=== PATIENT | female | born 1975 | race Two or more races ===

== ENCOUNTER 2019-08-20 10:55 | Emergency (ER) | payer MEDICAID ==
[~2019-08-20] VITALS: Ht 165.1 cm; Wt 124.7 kg
[2019-08-20 11:41] VITALS: BP 155/84
[2019-08-20] MEDS ORDERED: KETOROLAC TROMETH 60MG/2ML VIAL IM ONE (13:15)
== END 2019-08-20 13:43 | disposition home or self-care (01) ==
LOC: ER 10:55
DX: S86.911A Strain of unspecified muscle(s) and tendon(s) at lower leg level, right leg, initial encounter (principal); Z88.1 Allergy status to other antibiotic agents; Z88.6 Allergy status to analgesic agent; X50.0XXA Overexertion from strenuous movement or load, initial encounter; Y93.89 Activity, other specified; Y92.89 Other specified places as the place of occurrence of the external cause; Y99.8 Other external cause status
CPT/HCPCS: 73562; 96372; 99283; J1885

== ENCOUNTER 2020-11-17 12:36 | Emergency (ER) | payer MEDICAID ==
[~2020-11-17] VITALS: Ht 165.1 cm; Wt 131.5 kg
[2020-11-17 13:00] VITALS: BP 157/86
== END 2020-11-17 15:30 | disposition home or self-care (01) ==
LOC: ER 12:36
DX: M25.461 Effusion, right knee (principal); I10 Essential (primary) hypertension; F17.210 Nicotine dependence, cigarettes, uncomplicated; Z88.1 Allergy status to other antibiotic agents; Z88.5 Allergy status to narcotic agent; Z98.890 Other specified postprocedural states; W18.09XA Striking against other object with subsequent fall, initial encounter; Y93.01 Activity, walking, marching and hiking; Y92.89 Other specified places as the place of occurrence of the external cause; Y99.8 Other external cause status
CPT/HCPCS: 73564

== ENCOUNTER 2021-07-03 12:43 | Emergency (ER) | payer MEDICAID ==
[~2021-07-03] VITALS: Ht 162.6 cm; Wt 127.0 kg
[2021-07-03 13:02] VITALS: BP 177/124
[2021-07-03] MEDS ORDERED: LIDOCAINE 1% HCL (LOCAL ANESTH.) INJ 20ML MDV IJ ONE (14:30)
[2021-07-03] MEDS ORDERED: KETOROLAC TROMETH 60MG/2ML VIAL IM ONE (14:30)
[2021-07-03] MEDS ORDERED: MELO-61 PO ×2 (14:34→14:35)
== END 2021-07-03 14:41 | disposition home or self-care (01) ==
LOC: ER 12:43
DX: M23.92 Unspecified internal derangement of left knee (principal); M13.862 Other specified arthritis, left knee; I10 Essential (primary) hypertension; F17.210 Nicotine dependence, cigarettes, uncomplicated; Z79.899 Other long term (current) drug therapy; Z88.1 Allergy status to other antibiotic agents; Z88.5 Allergy status to narcotic agent
CPT/HCPCS: 73562; 96372; 99283; J1885

== ENCOUNTER 2023-01-19 21:44 | Inpatient (IN) | payer MEDICAID ==
[~2023-01-19] VITALS: Ht 162.6 cm; Wt 127.3 kg
[~2023-01-19 21:44] MED LIST: MELO-61 PO
[2023-01-19 22:48] LABS: Basophils # (auto) 0.1 10 ^3/uL (0-0.2); Basophils % (auto) 0.6 % (0.0-2.0); Eosinophils # (auto) 0.2 10 ^3/uL (0-0.8); Hematocrit 41.7 % (36.0-46.0); Hemoglobin 13.7 g/dL (12.2-16.2); Lymphocytes # (auto) 2.6 10 ^3/uL (0.4-5.4); Lymphocytes % (auto) 20.7 % (10.0-50.0); Mean Corpuscular Hemoglobin 29.9 pg (28.0-32.0); Mean Corpuscular Volume 90.6 fL (80.0-100.0); Monocytes # (auto) 0.8 10 ^3/uL (0-1.3); Monocytes % (auto) 6.7 % (0.0-12.0); Neutrophils # (auto) 8.7 10 ^3/uL (1.6-8.6); Red Cell Distribution Width 14.9 % (11.8-14.3); White Blood Cell 12.5 10^3/uL (4.4-10.8)
[2023-01-19 23:16] LABS: Potassium 3.8 mmol/L (3.5-5.1)
[2023-01-19 23:20] LABS: Albumin 3.4 g/dL (3.4-5.0); BUN/Creatinine Ratio 8.7 (10.0-20.0)
[2023-01-19 23:23] LABS: Bilirubin, Total 0.6 mg/dL (0.2-1.0); Total Protein 7.7 g/dL (6.4-8.2)
[2023-01-19] MEDS ORDERED: ASPirin 325 MG TAB PO ONE (23:45)
[2023-01-20] MEDS ORDERED: TEMAZEPAM 15 MG CAP PO PRN (06:45)
[2023-01-20] MEDS ORDERED: ONDANSETRON HCL 4 MG/2 ML VIAL IV PRN (06:45)
[2023-01-20] MEDS ORDERED: ACETAMINOPHEN 325 MG TAB PO PRN (06:45)
[2023-01-20] MEDS ORDERED: MORPHINE SULFATE INJ 2 MG/ml SYRG IV PRN (06:45)
[2023-01-20] MEDS ORDERED: NITROGLYCERIN 0.4 MG SL TAB SL PRN (06:45)
[2023-01-20] MEDS ORDERED: ASPirin 81 mg TAB PO SCH (10:00)
[2023-01-20] MEDS ORDERED: PANTOPRAZOLE 40 MG TAB PO SCH (10:00)
[2023-01-20] MEDS ORDERED: LISINOPRIL 10 MG TAB PO SCH (10:00)
[2023-01-20 11:44] LABS: Urine Bacteria NONE SEEN /hpf (None Seen); Urine Blood 1+ /uL (Negative); Urine Mucus FEW (None Seen); Urine Specific Gravity 1.028 (1.001-1.035); Urine WBC 3 /hpf (0 - 5)
[2023-01-20] MEDS ORDERED: hydrALAZINE HCL 20 MG/ML VL IV PRN (15:15)
[2023-01-20 18:00] VITALS: BP 149/68
[2023-01-20] MEDS ORDERED: ATORVASTATIN 20 MG TAB PO SCH (22:00)
== END 2023-01-20 18:08 | disposition left against medical advice (07) | DRG 190 ==
LOC: ER 21:44 → EDBD 21:44 → TELE 01-20 06:43 → UNDODISIN 01-20 18:08
PROVIDERS: ADMIT Nurse Practitioner; ATTEND Internal Medicine Geriatric Medicine
DX: I21.4 Non-ST elevation (NSTEMI) myocardial infarction (principal); S09.90XA Unspecified injury of head, initial encounter; E66.01 Morbid (severe) obesity due to excess calories; I24.9 Acute ischemic heart disease, unspecified; I10 Essential (primary) hypertension; I16.0 Hypertensive urgency; F41.1 Generalized anxiety disorder; W18.39XA Other fall on same level, initial encounter; Z53.29 Procedure and treatment not carried out because of patient's decision for other reasons; F41.9 Anxiety disorder, unspecified; R55 Syncope and collapse; Z72.0 Tobacco use; Z88.1 Allergy status to other antibiotic agents; Z91.199 Patient's noncompliance with other medical treatment and regimen due to unspecified reason; Z88.5 Allergy status to narcotic agent; Z88.8 Allergy status to other drugs, medicaments and biological substances; Z68.42 Body mass index [BMI] 45.0-49.9, adult; Y93.89 Activity, other specified; Y99.8 Other external cause status
CPT/HCPCS: 36415; 70450; 71045; 80053; 81001; 84484; 85025; 93005; 93306; G0378